=== PATIENT | male | born 1970 | race Two or more races ===

== ENCOUNTER 2024-10-01 23:07 | Emergency (ER) | payer OTHER ==
[~2024-10-01] VITALS: Ht 185.4 cm; Wt 133.8 kg
[2024-10-02] MEDS ORDERED: TRIAMCINOLONE ACETONIDE 40 MG/ML VIAL IM STA (01:23)
[2024-10-02] MEDS ORDERED: KETOROLAC TROMETHAMINE 60 MG VIAL IM STA (01:23)
[2024-10-02] MEDS ORDERED: KETOROLAC TROMETHAMINE 60 MG VIAL IM ONE (01:27)
[2024-10-02] MEDS ORDERED: TRIAMCINOLONE ACETONIDE 40 MG/ML VIAL ONE (01:27)
[2024-10-02 02:56] LABS: BASO % 0.4 % (0.1-1.2); EOS # 0.01 (0.04-0.54); EOS % 0.1 % (0.7-7.0); HEMATOCRIT 40.8 % (40.1-51.0); HEMOGLOBIN 14.3 g/dL (13.7-17.5); LYMPH # 1.24 (1.18-3.74); LYMPH % 9.6 % (19.3-53.1); MEAN CORPUSCULAR HEMOGLOBIN 30.4 pg (25.6-32.2); MONO # 1.25 (0.24-0.82); MONO % 9.7 % (4.7-12.5); NEUT # 10.31 (1.56-6.13); NEUT % 79.8 % (34.0-71.1); PLATELET COUNT 213 K/uL (163-369); RED BLOOD COUNT 4.71 M/uL (4.63-6.08); RED CELL DISTRIBUTION WIDTH 12.3 % (11.6-14.4)
[2024-10-02] MEDS ORDERED: DOXYCYCLINE HY100 MG PO (03:27)
[2024-10-02] MEDS ORDERED: KETO10TA2 PO (03:27)
== END 2024-10-02 03:48 | disposition home or self-care (01) ==
LOC: ER 23:35
PROVIDERS: General Practice
DX: M25.511 Pain in right shoulder (principal); S30.860A Insect bite (nonvenomous) of lower back and pelvis, initial encounter